=== PATIENT | male | born 1985 | race Caucasian/White ===

== ENCOUNTER 2024-12-08 23:22 | Inpatient (IN) | payer OTHER, SELFPAY ==
[2024-12-08 15:01] VITALS: BP 160/110
[2024-12-08 15:20] LABS: % Basophils 0.3 % (0-2); % Immature Granulocytes 0.5 % (0-0.5); % Lymphocytes 5.4 % (20.5-51.1); % Monocytes 5.6 % (1.7-9.3); % Neutrophils 88.2 % (42.2-75.2); Absolute Immature Granulocytes 0.1 10^3/uL (0-0.05); Absolute Lymphocytes 0.8 10^3/uL (1.2-3.4); Absolute Monocytes 0.9 10^3/uL (0.1-0.6); Absolute Neutrophils 13.5 10^3/uL (1.4-6.5); Hematocrit 49.6 % (39.0-52.0); Hemoglobin 17.7 g/dL (13.0-18.0); Mean Corp Hgb Conc. 35.7 g/dL (33.0-37.0); Mean Corpuscular Hgb 33.6 pg (27.0-31.0); Mean Corpuscular Volume 94.1 fL (80.0-94.0); Mean Platelet Volume 9.7 fL (7.4-10.4); Nucleated Red Blood Cells % 0 % (-); Platelet Count 213 10^3/uL (130-400); Red Blood Cell Count 5.27 10^6/uL (4.70-6.10); Red Cell Dist. Width 11.4 % (11.5-14.5); White Blood Cell Count 15.3 10^3/uL (4.8-10.8)
[2024-12-08 15:30] LABS: ALT (SGPT) 36 U/L (0-50); AST (SGOT) 32 U/L (17-59); Albumin 4.9 g/dl (3.5-5.0); Alkaline Phosphatase 64 U/L (38-126); Blood Urea Nitrogen 10 mg/dl (9-20); Calcium 9.4 mg/dl (8.4-10.2); Carbon Dioxide 29 mmol/L (22-30); Chloride 97 mmol/L (98-107); Glucose 158 mg/dl (70-99); Potassium 3.7 mmol/L (3.5-5.1); Sodium 137 mmol/L (135-145); Total Bilirubin 1.5 mg/dl (0.2-1.3); Total Protein 7.7 g/dl (6.3-8.2); eGFR > 60.00
[2024-12-08 15:50] LABS: Lipase 1066 U/L (23-300)
[2024-12-08 17:55] VITALS: BP 140/107
--- NOTE | 2024-12-08 20:12 | ED.GENMED ---
History of Present Illness
General
Chief Complaint: Abdominal Pain
Source: patient
Exam Limitations: none
Time Seen by Provider: 12/08/24 18:10
Nursing documentation reviewed up to this point in time: agreed with
History of Present Illness
History of Present Illness:
39-year-old male history of daily drinking presenting to the emergency department today with concerns of upper abdominal pain over the past 2 days or so. Difficulty tolerating by mouth significant discomfort to the upper abdomen. Some radiation to
the chest and back. Denies any specific fevers denies similar symptoms in the past.
Review of Systems
Review of Systems
Allergies reviewed?: Yes
All Other Systems: ROS reviewed and negative except as documented in HPI and ROS
Phy Exam
Physical Exam
Physical Exam:
GENERAL: Alert , in no apparent distress
EYE: pupils equal and reactive
NECK: Supple, no significant adenopathy.
ENT: o/p clr, mmm.
CARDIAC: Regular rate and rhythm .
LUNGS: Clear breath sounds bilaterally, no acute respiratory distress, no wheezes/rales/rhonchi
ABDOMEN: Epigastric abdominal pain otherwise soft abdomen
NEUROLOGICAL: Alert and oriented, no focal neuro deficits
SKIN: Warm and dry, skin intact.
MUSCULOSKELETAL: No edema, well perfused.
PSYCH: Normal and appropriate interaction.
Course
Orders/Labs/Results
Orders:
Orders
12/08/24 15:07
Electrocardiogram (*1) Urgent
Reason for Study: Chest Pain
EKG- Treatment ONCE
12/08/24 15:10
Complete Blood Count/With Diff Urgent
Comprehensive Metabolic Panel Urgent
Lipase Urgent
12/08/24 17:07
US Abdomen Complete/Upper Urgent
Comment:
Reason For Exam: upper ABD pain, right
12/08/24 19:32
0.9% Sodium Chloride 1000 ml [Nss] 1,000 ml IV BOLUS
Ketorolac [Toradol] 15 mg IV NOW STA
Ondansetron Injectable [Zofran] 4 mg IV NOW STA
Abnormal Lab Results
12/08/24
15:10
WBC 15.3 H 10^3/uL
(4.8-10.8)
MCV 94.1 H fL
(80.0-94.0)
MCH 33.6 H pg
(27.0-31.0)
RDW 11.4 L %
(11.5-14.5)
Abs Immat Gran (auto) 0.1 H 10^3/uL
(0-0.05)
Absolute Neuts (auto) 13.5 H 10^3/uL
(1.4-6.5)
Absolute Lymphs (auto) 0.8 L 10^3/uL
(1.2-3.4)
Absolute Monos (auto) 0.9 H 10^3/uL
(0.1-0.6)
Neutrophils % 88.2 H %
(42.2-75.2)
Lymphocytes % 5.4 L %
(20.5-51.1)
Chloride 97 L mmol/L
(98-107)
Glucose 158 H mg/dl
(70-99)
Total Bilirubin 1.5 H mg/dl
(0.2-1.3)
Lipase 1066 H* U/L
(23-300)
12/08/24 15:10
12/08/24 15:10
Vital Signs
Initial and Last Documented VS:
Initial Vital Signs
Temp Pulse Resp BP Pulse Ox
98.5 F 119 20 160/110 98
12/08/24 15:01 12/08/24 15:01 12/08/24 15:01 12/08/24 15:01 12/08/24 15:01
Last Documented Vital Signs
Temp Pulse Resp BP Pulse Ox
98.8 F 119 16 140/107 98
12/08/24 17:55 12/08/24 17:55 12/08/24 17:55 12/08/24 17:55 12/08/24 15:01
MDM/Problems Addressed
MDM/Problems Addressed:
39-year-old male presenting to the emergency department today with concerns of upper abdominal discomfort starting yesterday. Is a daily drinker. Does have reproducible pain to the epigastrium on exam. Initially tachycardic but improving after
receiving fluids and pain medication. White count of 15.3. Lipase resulted over thousand. Patient with likely pancreatitis. Ultrasound without a specific emergent findings. Plan to admit for further treatment and monitoring.
*Critical Care Note
Total Time (30-74mins, 75-104mins- exclusive of procedures): Not Applicable
ED Attending Note
-
Portions of this chart may have been created with voice recognition software.� Occasional wrong word or��sound alike� substitutions may have occurred due to the inherent limitations of voice recognition software.
Discharge Plan
Departure
Patient Disposition: Admit
Date of Disposition: 12/08/24
Time of Disposition: 20:14
Admit to: Med/Surg
Admit to doctor: Ilya
Presentation/result/management discussed w/ accepting MD/DO: Hospitalist
Patient with high blood pressure during this ER visit?: No
Condition: Good
Covid-19: Not Applicable
Discharge Problem:
Pancreatitis
Prescriptions:
No Action
calcium carbonate [Tums] 200 mg calcium (500 mg) Tablet,Chewable
200 mg PO QIDPRN PRN (Reason: gerd)
lansoprazole 15 mg Capsule,Delayed Release(Dr/Ec)
15 mg PO DAILY
ibuprofen [Advil] 200 mg Tablet
400 mg PO Q6HPRN PRN (Reason: mild pain)
Referrals:
NONE,* [Family Provider] -
Interventions
Interventions:
*Risk Screen - Suicide Last Done: 12/08/24 15:01
*General Assessment Last Done: 12/08/24 15:01
*Neglect/Abuse Screening Last Done: 12/08/24 15:01
Discharge Date and Time
Print Language: JAMAICAN
[2024-12-08 20:16] VITALS: BP 149/109; BMI 26.2
[2024-12-08] MEDS: NSS 1000 IV (20:31)
[2024-12-08] MEDS: ZOFRAN 4 MG IV (20:33)
[2024-12-08] MEDS: TORADOL 15 MG IV (20:33)
--- NOTE | 2024-12-08 22:01 | HPS.HSE ---
Family Physician
-
Family Physician: * NONE
Chief Complaint
-
Abdominal pain, alcohol abuse
History of Present Illness
39-year-old male history of daily alcohol use 10 shots of rum or 10 drinks of beer daily. He is complaining of upper abdominal pain over the past 2 days or so. He reports the upper abdominal pain radiates to his upper abdomen chest and back. He
vomited all last night and was unable to keep any liquids down. He denies fever, chills, chest pain, palpitations, cough, shortness of breath. He reports he has been drinking daily for many years he moved home several years ago after losing his
job out [employer] and 2 girlfriends due to his alcohol use. He reports he is under a lot of stress and owes Social Security $12,000 in addition to other debts. 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
however his insurance needs to be filled out by December 11 which is in 3 days. He is extremely upset that he is not going to fill out his papers in time. He feels that he can detox here for 2 days then go home and with the support of his family he can
stop drinking. He states he was admitted to [facility] approximately 1years ag0 with alcohol withdrawal he reports staying approximately 1-2 nights was given hydroxyzine Ativan and Protonix and discharged to home. He believes he has had only a
few weeks here and there of sobriety but never full sobriety prior to drinking he used to snort cocaine which he stopped 5 years ago. He does not have any interest in outpatient rehab as he does not want to lose his current job however he is
stressed and would like to speak with psychiatry to possibly get on antianxiety/antidepressant medication he has tried naloxone sublingual versus 30-day Vivitrol injection. He does have fine tremors on exam but no hallucinations or delusions
His past medical history of alcohol abuse daily 10 shots of vodka or 10 beers, prior cocaine use snorting stopped 5 years ago, anxiety, depression
Medical History
Past Medical History
Past Medical History: Reports Other
Additional Past Medical History:
alcohol abuse daily 10 shots of vodka or 10 beers
prior cocaine use snorting stopped 5 years ago
anxiety
depression
Hypertension
Past Surgical History: Reports Other
Additional Past Surgical History:
Nasal fracture repair
Social History
Tobacco: Non-smoker
Alcohol: Daily (10 shots of vodka or 10 beers daily)
Drug: Former User (Snorted cocaine 5 years ago)
Personal: Single
Living: With Family (Parents)
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
Family History
Family History: Other (States both parents drink but not daily mother drinks wine father drinks beer brother used to drink in college but then stopped once children sister used to drink but then stopped once children)
Allergies / Home Medications
Allergies reflects when Allergies were last updated in [facility].
Home Medications with original date entered in [facility]
Allergy/Medication List:
Allergies
Allergy/AdvReac Type Severity Reaction Status Date / Time
No Known Allergies Allergy Verified 12/08/24 15:01
Home Medications
calcium carbonate (Tums) 200 mg PO QIDPRN PRN gerd 12/08/24
ibuprofen 200 mg tablet (Advil) 400 mg PO Q6HPRN PRN mild pain 12/08/24
lansoprazole 15 mg capsule,delayed release 15 mg PO DAILY 12/08/24
Review of Systems
-
History Source: Patient
A 12 point ROS was completed and negative except as noted: Yes
Constitutional: Denies Fever, Fatigue or Chills
EENT: Denies Sore Throat or Runny Nose
Respiratory: Denies Cough or Trouble Breathing
Cardiac: Denies Chest Pain
Abdomen/GI: Reports Abdominal Pain (Epigastric through to back, right upper quadrant), Nausea and Vomiting; Denies Diarrhea, Constipated, Bloody Stools or Black Stools
: Denies Dysuria, Frequency, Flank Pain, Incontinence, Difficulty Voiding, Urgency or Bleeding
Musculoskeletal: Denies Joint Pain or Edema
Skin: Denies Itching or Rash
Neurological: Denies Dizzy, Headache or Weakness
Endocrine: Reports No Symptoms
Hematologic/Lymphatic: Reports No Symptoms
Psych: Reports Calm
Physical Exam
Vital Signs
Vital Signs
Temp Pulse Resp BP Pulse Ox
98.8 F 107 20 149/109 99
12/08/24 17:55 12/08/24 20:16 12/08/24 20:16 12/08/24 20:16 12/08/24 20:16
Physical Exam
General: Conversant and Pain; No Fever or Chills
HEENT: NormoCephalic, Anicteric, Moist mucous membranes, PERRLA, Hankins Conjunctivae and No Ptosis
Respiratory: Clear; No Wheezes, Rales or Rhonchi
Cardiac: S1/S2 and Tachycardia (Sinus tachycardia); No Murmur, Rub, Gallop or Peripheral Edema
GI: Soft, Normal Bowel Sounds, Tender (Midepigastric to right upper quadrant), Distended and Other (Positive hepatomegaly negative splenomegaly)
Rectal: Deferred by Provider
Genito-urinary: Deferred by me
Musculoskeletal: No Clubbing, No Cyanosis and No Edema
Neuro: AO x 3, No Motor Deficits, Nonfocal/grossly intact, Cranial Nerves Intact, No Sensory Deficits and Tremors (Fine tremors to hands); No Slurred Speech, Facial Droop or Sedated
Psych: Calm
Laboratory Results
-
12/08/24 15:10
12/08/24 15:10
Laboratory Results
Total Bilirubin 1.5 mg/dl (0.2-1.3) H 12/08/24 15:10
AST 32 U/L (17-59) 12/08/24 15:10
ALT 36 U/L (0-50) 12/08/24 15:10
Alkaline Phosphatase 64 U/L (38-126) 12/08/24 15:10
Lipase 1066 U/L (23-300) H* 12/08/24 15:10
Data Reviewed
-
Ultrasound: Report Reviewed by me
Lab Data: Labs Reviewed by me
Impression/Plan
-
Impression/plan:
Admit to telemetry
Acute alcoholic pancreatitis/trace ascites inferior to the liver
WBC 15.3 with left shift, afebrile 98.8, HR 107, 149/109
Lipase > 1066
- Check urine drug screen
-MSAS screen with protocol
IV thiamine, IV folate
Phenobarb taper
-Iv ppi
-Iv NSS 125 cc an hour
- Follow CBC, CMP
Abdominal ultrasound upper complete:
1.Hepatomegaly with fatty infiltration.
2. No gallstones or bile duct dilatation.
3. Trace ascites inferior to liver/gallbladder fossa region.
4. Pancreas obscured by bowel gas.
#Anxiety/depression
Patient reports used to be on hydroxyzine
Patient requesting psych consult
Hepatomegaly with fatty liver
Advised alcohol cessation
-Advised low-fat diet
GERD
-Continue Tums 200 mg p.o. 4 times daily as needed, lansoprazole 15 mg daily or equivalent
DVT prophylaxis
SCDs
Full code
--- NOTE | 2024-12-08 22:13 | W.PN.UPDATE ---
Update Note
Progress Note Update
Patient seen in conjunction with MASON. I agree to findings on history and physical. I concur with the assessment and plan unless stated otherwise.
This is a 39-year-old with past medical history of alcohol dependence, abuse, withdrawal symptoms and failed attempts at alcohol rehab who presents to the emergency department with 2 days of epigastric pain radiating to the right upper quadrant.
More recently the pain has been radiating to the back and epigastric region. He denies nausea or vomiting. He denies any diarrhea. He denies any fevers or chills. Patient drinks several shots of rum nightly. Reports at least 10 shots. He has
been doing so for several months and at least over a year. He reports having shakes in the mornings. He has been diagnosed with withdrawal episodes within the last 1 year. He denies ever having seizures. He denies hallucinations. He has never
had DTs. His last drink was about 42 hrs ago.
Denies history of gallstones. Denies any intra-abdominal surgeries. Looks like he has had episodes of gastritis/GERD for which he is on lansoprazole. He takes pain medications including Tylenol and Advil occasionally but states not recently. He
denies any melena or hematochezia.
In the emergency department he was afebrile, tachycardic to 107, blood pressure was 1 5100. ECG shows normal sinus rhythm at a rate of [address] or T wave changes. CBC was notable for a white count of 15, hemoglobin was 17.7,
electrolytes BUN and creatinine were normal. Total bilirubin was elevated 1.5 LFTs otherwise normal. Lipase was markedly elevated at 1000.
Ultrasound of the abdomen shows fatty infiltrated liver and no gallstones. Pancreatic view was obscured by gas.
Assessment and plan
39-year-old alcoholic presenting with abdominal pain that is epigastric and elevated lipase consistent with acute pancreatitis and possibly gastritis as well. Hemodynamically stable. No obvious pancreatic necrosis. High risk for withdrawal last
drink was about 42 hours ago. It does not appear that he has gone past 48 hours without alcohol in the recent past.
- admit to telemetry
- npo for now except sips and clears
- adat
- IV fluids
- pain control and antiemetics
- ppi iv for now, famotidine hs
ETOH - severe alcoholic, last drink 42 hours ago, mild tremors/tremulous/anxious. Normal sensorium.
- msas protocol, phenobarb taper
- interested in quiting, severe anxiety. Will get psych consult, case management.
DVT PPX - lovenox sq
Code status - full code
[2024-12-08] MEDS: PROTONIX IV 40 MG IV (23:18)
[2024-12-08] MEDS: FLUSH (NSS) 1 FLUSH IV (23:22)
[2024-12-09] VITALS (10 sets, daily range): BP systolic 123–165; BP diastolic 65–117; BMI 27.5
[2024-12-09] MEDS: NSS (PRESERVATIVE FREE) 10 ML IV ×2 (00:03→08:46)
[2024-12-09 01:28] LABS: Alcohol None Detected
[2024-12-09] MEDS: THIAMINE INJECTION 200 MG IV ×4 (02:48→23:49)
[2024-12-09] MEDS: TUMS CHEWABLE TABLET 200 MG PO ×3 (02:49→20:06)
[2024-12-09] MEDS: NSS 1000 IV (02:51)
[2024-12-09] MEDS: PHENOBARBITAL 104 MG IV (02:57)
[2024-12-09] MEDS: DILAUDID 0.25 MG IV (03:38)
--- NOTE | 2024-12-09 03:55 | PTCARENOTE ---
pt arrived from ED accompanied by ED staff. pt ambulated independently from stretcher to bed. pt AAOx3, pleasant. pt c/o 01/20 shooting abdominal pain. VSS except BP elevated at 165/117. BILLET CHECKER made aware- orders for stat dose of 0.25mg IV dilaudid
administered for pain, will continue to monitor closely.
[2024-12-09 03:56] LABS: APTT 26.2 Sec (23.4-35.0); INR 1.06; PT 14.1 Sec (11.4-14.6)
[2024-12-09 04:07] LABS: GGTP 116 U/L (15-73); Magnesium 1.4 mg/dl (1.6-2.3); Phosphorus 3.1 mg/dl (2.5-4.5)
[2024-12-09 04:14] LABS: B-Hydroxybutyrate 0.36 mmol/L (0.02-0.27)
[2024-12-09] MEDS: MAGNESIUM SULFATE 102 GRAMS IV (05:47)
[2024-12-09] MEDS: FOLVITE 1 MG PO (08:47)
[2024-12-09] MEDS: PROTONIX IV 40 MG IV (08:48)
[2024-12-09] MEDS: PHENOBARBITAL 97.5 MG IV ×3 (08:48→21:44)
--- NOTE | 2024-12-09 09:37 | W.PN.HOSP.TC ---
Today's Communication/Plan
-
Continue alcohol withdrawal protocol
Diet as tolerated
1 more liter of IV fluid
Psychiatry consult
Assessment / Plan
Assessment / Plan
Gen-AAOx3, NAD
HEENT-NC, AT, anicteric, clear oral mm
Neck-supple
CV-reg, no M, +S1/S2
Lungs-clear B/L
Abd-soft, NT, ND
Ext-no edema
Musculoskeletal-no cyanosis, clubbing
Skin-warm and dry
Neuro-grossly non-focal
Psych-calm, cooperative
Acute alcohol induced pancreatitis -clinically improving. Pain level coming down. Low-fat diet ordered. Change IV fluids to lactated Ringer's for 1 more liter.
Abdominal ultrasound shows hepatomegaly with fatty infiltration, no gallstones or bile duct dilation, trace ascites inferior to the liver, pancreas obscured by bowel gas.
Recommend outpatient GI follow-up and FibroScan, rule out underlying cirrhosis. Discussed with patient.
Severe alcohol use disorder -18-year history of heavy drinking according to patient. Last drink was on Sunday. No active withdrawal symptoms currently. Continue phenobarbital taper, as needed lorazepam. Thiamine, folic acid.
Psychiatry consulted.
Patient not interested in inpatient alcohol rehab. Contemplating outpatient. He understands the consequences of ongoing drinking including recurrent pancreatitis, cirrhosis, and clinical decline.
Hypomagnesemia -treated with IV magnesium this morning. Recheck levels tomorrow.
Elevated blood pressure -no known history of hypertension. Blood pressure on arrival is significantly elevated, likely due to alcohol withdrawal. Pressure now improved. Monitor for now.
Full code
Anticipated Discharge: 24 - 48 hours
Subjective/Interval History
-
Date of Service: December 09, 2024
Patient seen and examined. Abdominal pain much improved, 3 out of 10 currently. Denies nausea or vomiting. Denies withdrawal symptoms.
Objective Data
-
Labs:
Laboratory Results
12/09/24
03:33
PT 14.1
INR 1.06
APTT 26.2
Vital Signs:
Vital Signs
Temp Pulse Resp BP Pulse Ox
98.9 F 83 20 126/82 96
12/09/24 06:56 12/09/24 06:56 12/09/24 06:56 12/09/24 06:56 12/09/24 06:56
I&O
12/08/24 12/09/24 12/10/24
06:59 06:59 06:59
Intake Total 480 / 480
Balance 480 / 480
Review of Systems
-
History Source: Patient
All other systems: Reviewed and negative
[2024-12-09] MEDS: LR 1000 IV ×2 (10:05→19:07)
--- NOTE | 2024-12-09 10:51 | CM ---
Patient seen at bedside
Dx: Acute Alcoholic Pancreatitis
IA Completed
Psych consult
CM Consults completed-substance abuse/dispo planning
Patient lives at home with his parents in a 2 story home, 1 step
PLOF: independent
Denies DME
Denies VN/Rehab
Recently moved back here from [place] in Sep
works at [employer], in process of getting health ins through work
Patient receptive to [facility] resources, given pamphlet, called [facility] intake & spoke with Rand who will see the patient
PCP: none at present, Information given to patient on primary residency program
PHARMACY: [address], [place]
PLAN: tbd, continue to follow hospital progression, [facility] to visit patient
--- NOTE | 2024-12-09 12:28 | PTCARENOTE ---
Patient's BP 148/99. notified. Not treatment at this time. MSAS is 3.
[2024-12-09 12:40] LABS: Urine Albumin 1+ (Neg - Trace); Urine Bilirubin Negative (Negative); Urine Character Clear (Clear); Urine Color Amber; Urine Glucose Negative (Negative); Urine Ketone 2+ (Negative); Urine Leukocyte Negative (Negative); Urine Nitrite Negative (Negative); Urine Occult Blood Negative (Negative); Urine Urobilinogen 1+ (Neg - 1+)
--- NOTE | 2024-12-09 12:59 | CS.PSYCHR ---
Consult Summary - Psychiatry
-
Pt is a 39 yo male with history of daily alcohol use 10 shots of rum or 10 drinks of beer, presented complaining of upper abdominal pain over the past 2 days, with N/V. He reports he has been drinking daily for many years. Pt moved home several
years ago after losing his job out [place] [employer] and 2 girlfriends due to his alcohol use. Pt c/o financial stress, anxiety. Pt seen resting in bed, in no apparent distress. Pt talked about pervious addiction counseling when he was in [place]. Pt was given
loading dose of Phenobarb overnight and placed on taper protocol.
PMH: admitted for alcohol withdrawal briefly 1 year ago
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 Hx of Cocaine use, reportedly stopped 5 years ago
MSE: resting in bed, calm, alert, oriented, in no apparent distress. Speech coherent, thought clear. No signs of psychosis. Mood stable, affect appropriate. Insight limited
Imp: Alcohol Use d/o, severe. Difficult to assess anxiety level or initiate treatment in setting of acute alcohol withdrawal/treatment
Rec: continue Phenobarb taper, MSAS protocol. Outpatient therapy/ possible med mgt, when medically cleared
will follow intermittently
[2024-12-09 13:10] LABS: Amphetamines Negative (Negative); Barbiturates Positive (Negative); Benzodiazepines Negative (Negative); Buprenorphine Negative (Negative); Cocaine Negative (Negative); Marijuana Negative (Negative); Methadone Negative (Negative); Methamphetamines Negative (Negative); Opiates Positive (Negative); Phencyclidine Negative (Negative); Tricyclic Antidepressants Negative (Negative)
[2024-12-09 13:27] LABS: Fentanyl, Urine Negative (Negative)
[2024-12-09 13:40] LABS: Urine Mucus Many
[2024-12-09 13:42] LABS: Urine Amorphous Seen
[2024-12-09 13:44] LABS: Urine Red Blood Cell 0-2 /HPF (0-2); Urine White Cell 0-2 /HPF (0-5)
[2024-12-09] MEDS: TORADOL 15 MG IV (20:05)
[2024-12-09] MEDS: MELATONIN 5 MG PO (21:44)
[2024-12-10 03:00] VITALS: BP 123/84
[2024-12-10 07:22] LABS: % Basophils 0.4 % (0-2); % Eosinophils 2.1 % (0-6); % Immature Granulocytes 0.4 % (0-0.5); % Lymphocytes 14.9 % (20.5-51.1); % Monocytes 7.5 % (1.7-9.3); % Neutrophils 74.7 % (42.2-75.2); Absolute Eosinophils 0.2 10^3/uL (0-0.7); Absolute Lymphocytes 1.2 10^3/uL (1.2-3.4); Absolute Monocytes 0.6 10^3/uL (0.1-0.6); Hematocrit 38.2 % (39.0-52.0); Hemoglobin 13.6 g/dL (13.0-18.0); Mean Corp Hgb Conc. 35.6 g/dL (33.0-37.0); Mean Corpuscular Hgb 33.7 pg (27.0-31.0); Mean Corpuscular Volume 94.6 fL (80.0-94.0); Mean Platelet Volume 10.3 fL (7.4-10.4); Nucleated Red Blood Cells % 0 % (-); Platelet Count 132 10^3/uL (130-400); Red Blood Cell Count 4.04 10^6/uL (4.70-6.10); Red Cell Dist. Width 11.1 % (11.5-14.5)
[2024-12-10 07:34] LABS: ALT (SGPT) 17 U/L (0-50); AST (SGOT) 19 U/L (17-59); Alkaline Phosphatase 42 U/L (38-126); Blood Urea Nitrogen 7 mg/dl (9-20); Calcium 8.5 mg/dl (8.4-10.2); Carbon Dioxide 27 mmol/L (22-30); Chloride 103 mmol/L (98-107); Estimated Creatinine Clearance > 125 ml/min; Glucose 97 mg/dl (70-99); Magnesium 1.9 mg/dl (1.6-2.3); Potassium 2.9 mmol/L (3.5-5.1); Sodium 139 mmol/L (135-145); Total Bilirubin 0.9 mg/dl (0.2-1.3); Total Protein 5.5 g/dl (6.3-8.2); eGFR > 60.00
[2024-12-10 08:06] VITALS: BP 139/79
[2024-12-10] MEDS: PHENOBARBITAL 97.5 MG IV ×3 (08:09→22:18)
[2024-12-10] MEDS: NSS (PRESERVATIVE FREE) 10 ML IV (08:10)
[2024-12-10] MEDS: PROTONIX IV 40 MG IV (08:10)
[2024-12-10] MEDS: THIAMINE INJECTION 200 MG IV ×2 (08:10→17:06)
[2024-12-10] MEDS: FOLVITE 1 MG PO (08:11)
[2024-12-10] MEDS: KCL 270 MEQ IV (10:31)
[2024-12-10] MEDS: KCL 40 MEQ PO (10:31)
--- NOTE | 2024-12-10 10:34 | W.PN.HOSP.TC ---
Addendum entered and electronically signed by Casey Downing DO 12/10/24 12:45:
SIRS due to acute pancreatitis
Original Note:
Today's Communication/Plan
-
Replete potassium
BMP later today
Continue alcohol withdrawal protocol
Assessment / Plan
Assessment / Plan
Gen-AAOx3, NAD
HEENT-NC, AT, anicteric, clear oral mm
Neck-supple
CV-reg, no M, +S1/S2
Lungs-clear B/L
Abd-soft, NT, ND
Ext-no edema
Musculoskeletal-no cyanosis, clubbing
Skin-warm and dry
Neuro-grossly non-focal
Psych-calm, cooperative
Acute alcohol induced pancreatitis -clinically improving. Pain level coming down. Tolerating low-fat diet.
Abdominal ultrasound shows hepatomegaly with fatty infiltration, no gallstones or bile duct dilation, trace ascites inferior to the liver, pancreas obscured by bowel gas.
Recommend outpatient GI follow-up and FibroScan, rule out underlying cirrhosis. Discussed with patient.
Severe alcohol use disorder -18-year history of heavy drinking according to patient. Last drink was on Sunday. No active withdrawal symptoms currently. Continue phenobarbital taper, as needed lorazepam. Thiamine, folic acid.
Psychiatry consulted.
Patient not interested in inpatient alcohol rehab. Contemplating outpatient. He understands the consequences of ongoing drinking including recurrent pancreatitis, cirrhosis, and clinical decline.
Hypomagnesemia -resolved.
Hypokalemia -2.9 this morning. Will replete p.o./IV. Recheck levels later today. Check phosphate levels. Concern for alcohol induced hypokalemia versus refeeding syndrome.
Elevated blood pressure -no known history of hypertension. Blood pressure on arrival is significantly elevated, likely due to alcohol withdrawal. Pressure now improved. Monitor for now.
Full code
Anticipated Discharge: Within 24 hours
Subjective/Interval History
-
Date of Service: December 10, 2024
Patient seen and examined. Feeling much better. Mild abdominal discomfort.
Objective Data
-
Labs:
Laboratory Results
12/10/24 12/10/24
06:29 16:00
WBC 8.0
Hgb 13.6 D
Hct 38.2 L
Plt Count 132 D
Sodium 139 Pending
Potassium 2.9 L Pending
Chloride 103 Pending
Carbon Dioxide 27 Pending
BUN 7 L Pending
Creatinine 0.6 L Pending
Glucose 97 Pending
Calcium 8.5 Pending
Total Bilirubin 0.9
AST 19
ALT 17
Alkaline Phosphatase 42
Vital Signs:
Vital Signs
Temp Pulse Resp BP Pulse Ox
98.3 F 68 18 139/79 98
12/10/24 08:06 12/10/24 08:06 12/10/24 08:06 12/10/24 08:06 12/10/24 08:06
I&O
12/09/24 12/10/24 12/11/24
06:59 06:59 06:59
Intake Total 480 / 480 1080 / 1080
Output Total 1700 / 1700
Balance 480 / 480 -620 / -620
Review of Systems
-
History Source: Patient
All other systems: Reviewed and negative
[2024-12-10 11:40] LABS: Phosphorus 3.2 mg/dl (2.5-4.5)
--- NOTE | 2024-12-10 12:35 | PN.CDI ---
CDI
- -
CDI:
Physician Documentation Request
Admit Date: 12/08/24 23:22
Dear Doctor Salina ,
Please review the following and provide your response in the progress notes.
Clinical Indicators:
Pt admitted with alcoholic pancreatitis /Alcohol withdrawal
Documented per H&P,' Acute alcoholic pancreatitis/trace ascites inferior to the liver WBC 15.3 with left shift, afebrile 98.8, HR 107, 149/109...'
Please clarify which most accurately describes the patient:
SIRS due to a non-infectious source
Acute alcoholic Pancreatitis only
Other ( please specify)
Use of terms such as suspected, likely, concern for, or probable (associated with a specific diagnosis that is being evaluated, monitored, or treated as if it exists) are acceptable and can be coded in the inpatient setting, when documented at the
time of discharge.
Thank you,
Yolanda Allen RN
CDI Specialist
[facility]
Please use your independent medical judgment in providing your response.
--- NOTE | 2024-12-10 13:26 | W.PN.UPDATE ---
Update Note
Progress Note Update
patient seen chart reviewed. discussed with nursing.t mr fraser is hoping to leave this afternoon if his potassium comes up to nl. he has been advised strongly by this underwriter mortgage loan and by nursing to remain a few days more so that he leaves further along
in the process of detox. he was rather thoughtful about his reasons to leave although i would still urge him to stay. he feels he has a large debt to service and he needs to return to work. tomorrow he gets [employer] insurance through his work which
he feels intermediate will enable him to seek better treatment for all of his illes. he does have a close friend sober for ten years who has agreed to get him to meetings and support him. he is willing to do out pt rehab as well and showed me the
paperwork from [facility]. he does seem to be taking seriously the destruction that etoh is wreaking upon his body which he says has not been the case in the past. he now believes he is at the point of no return now with his drinking and he needs to
stop or he will . he does feel he has some depression and anxiety but he is not suicidal. he is willing to consider whether he might benefit from psych when he gets sober. parents have removed all etoh from the home. i also advised him to
formulate a plan for sobriety. he needs to think about ten things he will do when tempted and write them down and immediately begin them when he feels tempted which he certainly will be when he leaves here. he says his hospitalist is going to give
him phenobarb scrip to detox at home. advised him if he feels things are not working out to come back to for help. if he does remain will see him tomorrow
[2024-12-10 15:38] VITALS: BP 136/93
[2024-12-10 16:40] LABS: Blood Urea Nitrogen 6 mg/dl (9-20); Calcium 8.6 mg/dl (8.4-10.2); Carbon Dioxide 25 mmol/L (22-30); Chloride 104 mmol/L (98-107); Estimated Creatinine Clearance > 125 ml/min; Glucose 144 mg/dl (70-99); Potassium 3.9 mmol/L (3.5-5.1); Sodium 137 mmol/L (135-145); eGFR > 60.00
--- NOTE | 2024-12-10 17:47 | W.DS.TRANS ---
DC Summary - [employer]
-
Discharge Instructions:
Discharge Diagnosis/Procedures Alcohol induced pancreatitis, alcohol use
disorder, electrolyte abnormalities
Diet Low Fat,Low Cholesterol
Activity As tolerated
Driving Restrictions No driving
Bathing Restrictions None
Instructions:
Stand-Alone Forms:
Changes to Home Medications: No
Discharge Medications:
DC Medications w/original date entered in [employer]
folic acid 1 mg tablet 1 mg PO DAILY #30 tabs 12/10/24
pantoprazole 40 mg tablet,delayed release (Protonix) 40 mg PO DAILY #30 tabs 12/10/24
phenobarbital 32.4 mg tablet 32.4 mg PO TID #21 tabs 12/10/24
potassium chloride 20 mEq tablet,extended release 20 meq PO DAILY #5 tabs 12/10/24
thiamine mononitrate (vit B1) 100 mg tablet 100 mg PO BID #60 tabs 12/10/24
Home Medication Changes
Pending Results: No
[2024-12-10] MEDS: TUMS CHEWABLE TABLET 200 MG PO (22:19)
[2024-12-10 23:49] VITALS: BP 151/105
[2024-12-11] MEDS: THIAMINE INJECTION 200 MG IV (00:01)
[2024-12-11 00:53] VITALS: BP 141/95
[2024-12-11 07:52] VITALS: BP 133/84
[2024-12-11] MEDS: FOLVITE 1 MG PO (08:24)
[2024-12-11] MEDS: PROTONIX IV IV ×2 (08:24→08:42)
[2024-12-11] MEDS: NSS (PRESERVATIVE FREE) IV ×2 (08:24→08:41)
[2024-12-11] MEDS: THIAMINE INJECTION IV ×2 (08:24→08:42)
[2024-12-11] MEDS: LUMINAL 64.8 MG PO (08:24)
--- NOTE | 2024-12-11 08:58 | W.PN.HOSP.TC ---
Today's Communication/Plan
-
Discharge
Assessment / Plan
Assessment / Plan
Gen-AAOx3, NAD
HEENT-NC, AT, anicteric, clear oral mm
Neck-supple
CV-reg, no M, +S1/S2
Lungs-clear B/L
Abd-soft, NT, ND
Ext-no edema
Musculoskeletal-no cyanosis, clubbing
Skin-warm and dry
Neuro-grossly non-focal
Psych-calm, cooperative
Acute alcohol induced pancreatitis -clinically improving. Pain level coming down. Tolerating low-fat diet.
Abdominal ultrasound shows hepatomegaly with fatty infiltration, no gallstones or bile duct dilation, trace ascites inferior to the liver, pancreas obscured by bowel gas.
Recommend outpatient GI follow-up and FibroScan, rule out underlying cirrhosis. Discussed with patient.
Severe alcohol use disorder -18-year history of heavy drinking according to patient. Last drink was on Sunday. No active withdrawal symptoms currently. Continue phenobarbital taper, as needed lorazepam. Thiamine, folic acid.
Psychiatry consulted.
Patient not interested in inpatient alcohol rehab. Contemplating outpatient. He understands the consequences of ongoing drinking including recurrent pancreatitis, cirrhosis, and clinical decline.
Hypomagnesemia -resolved.
Hypokalemia -improved.
Elevated blood pressure -no known history of hypertension. Blood pressure on arrival is significantly elevated, likely due to alcohol withdrawal. Pressure now improved. Monitor for now.
Full code
Dispo -medically stable for discharge home. Outpatient follow-up.
31 minutes spent in discharge process.
Anticipated Discharge: Today
Subjective/Interval History
-
Date of Service: December 11, 2024
Patient seen and examined. No complaints.
Objective Data
-
Vital Signs:
Vital Signs
Temp Pulse Resp BP Pulse Ox
98.5 F 58 16 133/84 99
12/11/24 07:52 12/11/24 07:52 12/11/24 07:52 12/11/24 07:52 12/11/24 07:52
I&O
12/10/24 12/11/24 12/12/24
06:59 06:59 06:59
Intake Total 1080 / 1080 1940 / 1940
Output Total 1700 / 1700 600 / 600
Balance -620 / -620 1340 / 1340
Review of Systems
-
History Source: Patient
All other systems: Reviewed and negative
--- NOTE | 2024-12-11 09:07 | CM ---
Chart reviewed and plan is for patient to return to home today, patient was referred to [facility] who will follow up with patient, plan is to home with outpatient resources.
Plan; Home with outpatient follow up.
--- NOTE | 2024-12-11 10:20 | PTCARENOTE ---
Educated pt on discharge packet including new medications. Instructed not to drive until 12/16/2024 per MD d/t taking phenobarb. Removed IV, pain/swelling at IV site noted and educated pt. No questions at this time.
== END 2024-12-11 10:18 | disposition home or self-care (01) | DRG 439 ==
LOC: 4 EAST ACU 23:22
PROVIDERS: Clinical Nurse Specialist Family Health; Emergency Medicine; ADMITTING PHYSICIAN Internal Medicine; ATTENDING PHYSICIAN Hospitalist; EMERGENCY PHYSICIAN Emergency Medicine; OTHER PHYSICIAN Psychiatry & Neurology Psychiatry
DX: K85.20 Alcohol induced acute pancreatitis without necrosis or infection (principal); F10.239 Alcohol dependence with withdrawal, unspecified; R65.10 Systemic inflammatory response syndrome (SIRS) of non-infectious origin without acute organ dysfunction; F32.A Depression, unspecified; F41.9 Anxiety disorder, unspecified; I10 Essential (primary) hypertension; K21.9 Gastro-esophageal reflux disease without esophagitis; K70.0 Alcoholic fatty liver; K29.70 Gastritis, unspecified, without bleeding
CPT/HCPCS: 76700; 80048; 80053; 80306; 80307; 81003; 81015; 82010; 82077; 82977; 83690; 83735; 84100; 85025; 85610; 85730; 93005; 96361; 96374; 96375; 99285